=== PATIENT | female | born 1955 | race African-American/Black ===

== ENCOUNTER → 2024-12-03 13:16 | Outpatient (REF) | payer MEDICARE, OTHER, SELFPAY | LOC: HO.CARD 13:16 | DX: Z01.818 Encounter for other preprocedural examination (principal) | CPT/HCPCS: 93306 ==

== ENCOUNTER → 2024-12-03 13:28 | Outpatient (BNV) | payer MEDICARE, OTHER, SELFPAY | PROVIDERS: Visit Provider Internal Medicine Cardiovascular Disease | DX: I35.8 Other nonrheumatic aortic valve disorders (principal) | CPT/HCPCS: 93306 ==

== ENCOUNTER 2025-01-05 15:08 | Outpatient (REF) | payer MEDICARE, OTHER, SELFPAY ==
--- NOTE | ~2025-01-05 | CT_ITS ---
CLINICAL HISTORY: PRE-TRANSPLANT EVALUATION KIDNEY TRANSPLANT CT abdomen and pelvis without contrast Comparison: None Findings: The lung bases are clear. Cholecystectomy clips. Hepatic contour is nodular. Pancreatic head and neck calcifications are present. There is a 15 mm diameter partially exophytic cystic focus involving the pancreatic body anteriorly. Solid organs are within normal limits. No bowel obstruction, pneumoperitoneum, or pneumatosis. Pelvic contents unremarkable. Normal appendix. No acute fracture. IMPRESSION: 1. No acute process. 2. Findings suggestive of cirrhosis. 3. Chronic pancreatitis. 4. Cystic pancreatic focus. Pancreatic protocol MRI is recommended for further assessment. This document has been electronically signed by: Halie Meyer MD on 01/06/2025 17:59:29
== END 2025-01-05 15:09 | disposition home or self-care (01) ==
LOC: HO.CT 15:08
PROVIDERS: Visit Provider Student in an Organized Health Care Education/Training Program
DX: Z01.818 Encounter for other preprocedural examination (principal); N18.6 End stage renal disease
CPT/HCPCS: 74176

== ENCOUNTER → 2025-01-05 15:10 | Outpatient (BNV) | payer MEDICARE, OTHER, SELFPAY | PROVIDERS: Visit Provider Radiology Diagnostic Radiology | DX: K86.1 Other chronic pancreatitis (principal) | CPT/HCPCS: 74176 ==